=== PATIENT | female | born 1970 | race African-American/Black ===

== ENCOUNTER 2018-07-17 16:31 | Inpatient (IN) | payer MEDICARE, MEDICAID ==
[~2018-07-17] VITALS: Ht 172.7 cm; Wt 102.1 kg
[2018-07-17] MEDS ORDERED: ONDANSETRON HCL 4MG/2ML INJ IV STA (16:45)
[2018-07-17 18:19] LABS: BASOPHILS % 0.6 % (0.0-2.0); LYMPHOCYTES % 19.8 % (20.0-50.0); MEAN CORPUSCULAR HEMOGLOBIN 29.4 pg (28.0-32.0); MEAN CORPUSCULAR VOLUME 92.9 fL (81.0-99.0); MEAN PLATELET VOLUME 8.1 fl (7.4-10.4); MONOCYTES % 5.3 % (2.0-8.0); NEUTROPHILS % 72.3 % (40.0-76.0); PLATELET 148 x1000/uL (130-400); RED BLOOD CELL COUNT 1.92 mill/uL (4.2-5.4); RED CELL DISTRIBUTION WIDTH 17.4 % (11.6-14.6)
[2018-07-17 18:23] LABS: CHLORIDE 105 mEq/L (98-107); INR 1.2; PROTHROMBIN TIME 12.7 sec (9.6-11.0)
[2018-07-17 18:24] LABS: HEMATOCRIT. 17.9 % (36.0-48.0); HEMOGLOBIN. 5.7 g/dL (12.0-16.0)
[2018-07-17 18:27] LABS: ETHANOL BLOOD < 10 mg/dL
[2018-07-17 19:14] LABS: HEMATOCRIT 17.6 % (36.0-48.0); HEMOGLOBIN 5.6 g/dL (12.0-16.0)
[2018-07-18] VITALS (9 sets, daily range): BP systolic 107–155; BP diastolic 55–76
[2018-07-18] MEDS ORDERED: SODIUM BICARBONATE 8.4% 1 MEQ/ML 50ML SYR IV ONE (01:45)
[2018-07-18] MEDS ORDERED: CALCIUM CHLORIDE 1GM/10ML SYR IV ONE (01:45)
[2018-07-18] MEDS ORDERED: SODIUM POLYSTYRENE SULFONATE 15 G/60 ML BOT PO ONE (01:45)
[2018-07-18] MEDS ORDERED: FOLIC ACID/VITAMIN B COMP W-C TABLET PO SCH (09:00)
[2018-07-18 09:36] LABS: HEMATOCRIT 22.8 % (36.0-48.0); MEAN CORPUSCULAR HEMOGLOBIN 29.5 pg (28.0-32.0); MEAN CORPUSCULAR VOLUME 90.4 fL (81.0-99.0); PLATELET 120 x1000/uL (130-400); RED BLOOD CELL COUNT 2.52 mill/uL (4.2-5.4); RED CELL DISTRIBUTION WIDTH 15.9 % (11.6-14.6)
[2018-07-18 09:54] LABS: HEMOGLOBIN 7.5 g/dL (12.0-16.0)
[2018-07-18 11:57] LABS: HEPATITIS B SURFACE ANTIGEN NEGATIVE
[2018-07-18 12:26] LABS: HEPATITIS A AB IGM NEGATIVE (NEGATIVE)
[2018-07-18] MEDS ORDERED: PANTOPRAZOLE SODIUM 40 MG/VIAL IV SCH (14:00)
[2018-07-18 19:04] LABS: HEMATOCRIT 22.7 % (36.0-48.0); HEMOGLOBIN 7.4 g/dL (12.0-16.0)
== END 2018-07-18 21:15 | disposition short-term general hospital (02) | DRG 811 ==
LOC: ER 16:31 → 6WST 07-18 01:41 → EDBEDREQ 07-18 01:46 → EDBEDREQDT 07-18 01:46 → EDBEDREQTM 07-18 01:46 → ENRESERV 07-18 02:43 → 6WST 07-18 17:56
PROVIDERS: ADMIT Internal Medicine Geriatric Medicine; ATTEND Internal Medicine Geriatric Medicine
PROC: 30233N1 Transfusion of Nonautologous Red Blood Cells into Peripheral Vein, Percutaneous Approach (ICD-10-PCS; principal; 2018-07-17)
PROC: 5A1D70Z Performance of Urinary Filtration, Intermittent, Less than 6 Hours Per Day (ICD-10-PCS; 2018-07-18)
DX: D64.9 Anemia, unspecified (principal); E43 Unspecified severe protein-calorie malnutrition; N18.6 End stage renal disease; R18.8 Other ascites; I13.2 Hypertensive heart and chronic kidney disease with heart failure and with stage 5 chronic kidney disease, or end stage renal disease; G89.29 Other chronic pain; L98.499 Non-pressure chronic ulcer of skin of other sites with unspecified severity; I95.9 Hypotension, unspecified; E66.01 Morbid (severe) obesity due to excess calories; K74.60 Unspecified cirrhosis of liver; E87.5 Hyperkalemia; K21.9 Gastro-esophageal reflux disease without esophagitis; K59.00 Constipation, unspecified; K64.9 Unspecified hemorrhoids; Z99.2 Dependence on renal dialysis; Z68.34 Body mass index [BMI] 34.0-34.9, adult; Z88.6 Allergy status to analgesic agent; Z88.8 Allergy status to other drugs, medicaments and biological substances
CPT/HCPCS: 36415; 71045; 74176; 80048; 80320; 82140; 82270; 83540; 83550; 83605; 83880; 84484; 85014; 85018; 85027; 86705; 86709; 86803; 86850; 86900; 86920; 87340; 93005; 96374; 96375; 99285; C9113; J2405; J3490; J7040; P9016; G0480

== ENCOUNTER 2021-11-03 12:14 | Inpatient (IN) | payer MEDICARE, MEDICAID ==
[~2021-11-03] VITALS: Ht 167.6 cm; Wt 82.2 kg
[~2021-11-03 12:14] MED LIST: ATEN50TA PO; HYDR-4134 PO; LOSA50TA3 PO
[2021-11-03 13:10] LABS: BG BASE EXCESS 6.2 mmol/L (-2.0-2.0); BG CARBOXYHEMOGLOBIN 1.1 % (0.5-1.5); BG DEOXYHEMOGLOBIN 7.1 % (0.0-5.0); BG HCO3 ACT 31.7 mmol/L (22.0-26.0); BG METHEMOGLOBIN 0.3 % (0.0-1.5); BG OXYGEN SATURATION 92.8 % (92.0-98.5); BG OXYHEMOGLOBIN 91.5 % (94.0-97.0); BG PCO2 49.9 mmHg (35.0-45.0); BG PH 7.421 (7.350-7.450); BG PO2 69.5 mmHg (75.0-100.0); BG SAMPLE SITE RIGHT BRACHIAL; BG TOTAL HEMOGLOBIN 12.3 g/dL (12.0-18.0); BG VENT MODE ROOM AIR
[2021-11-03 13:59] LABS: BASOPHILS % 1.3 % (0.0-2.0); EOSINOPHILS % 8.2 % (0.0-5.0); HEMOGLOBIN. 10.4 g/dL (12.0-16.0); LYMPHOCYTES % 36.2 % (20.0-50.0); MEAN CORPUSCULAR HEMOGLOBIN 30.9 pg (28.0-32.0); MEAN CORPUSCULAR VOLUME 97.9 fL (81.0-99.0); MEAN PLATELET VOLUME 9.2 fl (7.4-10.4); MONOCYTES % 10.9 % (2.0-8.0); NEUTROPHILS % 43.4 % (40.0-76.0); PLATELET 114 x1000/uL (130-400); RED BLOOD CELL COUNT 3.37 mill/uL (4.2-5.4); RED CELL DISTRIBUTION WIDTH 16.8 % (11.6-14.6)
[2021-11-03 14:06] LABS: CHLORIDE 93 mEq/L (98-107)
[2021-11-03 14:09] LABS: INR 1.1; PROTHROMBIN TIME 12.1 sec (9.6-11.0)
[2021-11-03 14:16] LABS: ETHANOL BLOOD < 10 mg/dL
[2021-11-03] MEDS ORDERED: DEXTROSE 50% WATER 50ML SYRINGE IV ONE (14:30)
[2021-11-03] MEDS ORDERED: LABETALOL 5MG/ML SYR 20 MG/4 ML SYRINGE IV ONE (14:45)
[2021-11-03] MEDS ORDERED: IPRATROPIUM/ALBUTEROL 0.5-3(2.5)MG/3ML NEB HHN PRN (16:15)
[2021-11-03] MEDS ORDERED: DIPHENHYDRAMINE 50MG/ML VIAL IV PRN (16:15)
[2021-11-03] MEDS ORDERED: ACETAMINOPHEN 325MG TABLET PO PRN (16:15)
[2021-11-03] MEDS ORDERED: ONDANSETRON HCL 4MG/2ML INJ IV PRN (16:15)
[2021-11-03] MEDS: DEXT 5%/0.9% NACL 1,000 ML IV SCH (21:45)
[2021-11-03 23:17] VITALS: BP 160/90
[2021-11-04] MEDS ORDERED: DEXTROSE 50% WATER 50ML SYRINGE IV PRN (01:45)
[2021-11-04 04:00] VITALS: BP 140/79
[2021-11-04] MEDS ORDERED: AMLO5TAB88 MT (05:11)
[2021-11-04] MEDS: DEXT 5%/0.9% NACL 1,000 ML IV SCH ×2 (05:24→17:15)
[2021-11-04] MEDS: BLOOD SUGAR DIAGNOSTIC STRIP TEST SCH ×4 (07:40→20:06)
[2021-11-04 07:52] LABS: *AMPHETAMINES SCREEN URINE NEGATIVE (NEGATIVE); *BARBITURATES SCREEN URINE NEGATIVE (NEGATIVE); *BENZODIAZEPINES SCREEN URINE NEGATIVE (NEGATIVE); *COCAINE SCREEN URINE NEGATIVE (NEGATIVE); CANNABINOID URINE SCREEN PRESUMTIVE POSITIVE (NEGATIVE); METHADONE URINE SCREEN NEGATIVE (NEGATIVE); OPIATES URINE SCREEN NEGATIVE (NEGATIVE); PHENCYCLIDINE URINE SCREEN NEGATIVE (NEGATIVE)
[2021-11-04 07:56] LABS: CLARITY URINE TURBID (CLEAR); COLOR URINE BLOODY (YELLOW)
[2021-11-04 07:57] LABS: LEUKOCYTE ESTERASE URINE 1+ (NEGATIVE); UROBILINOGEN URINE 0.2 E.U./dL (0.2-1.0)
[2021-11-04 07:58] LABS: PROTEIN URINE 2+ (NEGATIVE)
[2021-11-04 07:59] LABS: OCCULT BLOOD URINE 3+ (NEGATIVE)
[2021-11-04 08:00] VITALS: BP 146/86
[2021-11-04 08:00] LABS: SPECIFIC GRAVITY URINE 1.005 (1.005-1.030)
[2021-11-04 08:01] LABS: KETONES URINE NEGATIVE (NEGATIVE)
[2021-11-04 08:02] LABS: NITRITE URINE NEGATIVE (NEGATIVE)
[2021-11-04 08:07] LABS: BASOPHILS % 0.6 % (0.0-2.0); EOSINOPHILS % 8.3 % (0.0-5.0); HEMATOCRIT. 26.6 % (36.0-48.0); HEMOGLOBIN. 8.8 g/dL (12.0-16.0); LYMPHOCYTES % 24.8 % (20.0-50.0); MEAN CORPUSCULAR HEMOGLOBIN 31.3 pg (28.0-32.0); MEAN CORPUSCULAR VOLUME 94.8 fL (81.0-99.0); MEAN PLATELET VOLUME 9.2 fl (7.4-10.4); MONOCYTES % 6.7 % (2.0-8.0); NEUTROPHILS % 59.6 % (40.0-76.0); PLATELET 123 x1000/uL (130-400); RED CELL DISTRIBUTION WIDTH 16.5 % (11.6-14.6)
[2021-11-04 08:12] LABS: CHLORIDE 95 mEq/L (98-107)
[2021-11-04] MEDS: CEFTRIAXONE 1,000 MG in DEXTROSE 5% WATER 50 ML IV SCH (11:30)
[2021-11-04 12:00] VITALS: BP 175/91
[2021-11-04 12:43] LABS: HEPATITIS B SURFACE ANTIGEN NEGATIVE
[2021-11-04] MEDS ORDERED: ATOR40TA70 PO (13:00)
[2021-11-04] MEDS ORDERED: GABA-532 PO (13:00)
[2021-11-04] MEDS ORDERED: CALC667T2 PO (13:01)
[2021-11-04] MEDS: LACTULOSE 20G/30ML UDC PO SCH ×2 (14:22→22:34)
[2021-11-04 16:00] VITALS: BP 144/80
[2021-11-04 20:00] VITALS: BP 162/89
[2021-11-04] MEDS ORDERED: EPOETIN ALFA-EPBX 10,000 UNIT/ML VIAL SUBCUT PRN (21:00)
[2021-11-05] VITALS: BP 155/89
[2021-11-05 04:00] VITALS: BP 156/85
[2021-11-05] MEDS: DEXT 5%/0.9% NACL 1,000 ML IV SCH ×2 (04:57→17:23)
[2021-11-05 06:19] LABS: BASOPHILS % 1.2 % (0.0-2.0); HEMATOCRIT. 27.3 % (36.0-48.0); HEMOGLOBIN. 8.9 g/dL (12.0-16.0); LYMPHOCYTES % 25.2 % (20.0-50.0); MEAN CORPUSCULAR HEMOGLOBIN 30.7 pg (28.0-32.0); MEAN CORPUSCULAR VOLUME 93.8 fL (81.0-99.0); MEAN PLATELET VOLUME 9.1 fl (7.4-10.4); MONOCYTES % 11.6 % (2.0-8.0); PLATELET 125 x1000/uL (130-400); RED BLOOD CELL COUNT 2.91 mill/uL (4.2-5.4); RED CELL DISTRIBUTION WIDTH 16.1 % (11.6-14.6)
[2021-11-05] MEDS: LACTULOSE 20G/30ML UDC PO SCH ×3 (06:36→21:29)
[2021-11-05] MEDS: BLOOD SUGAR DIAGNOSTIC STRIP TEST SCH ×4 (07:40→21:29)
[2021-11-05 08:00] VITALS: BP 158/85
[2021-11-05] MEDS: CEFTRIAXONE 1,000 MG in DEXTROSE 5% WATER 50 ML IV SCH (08:15)
[2021-11-05] MEDS ORDERED: LACT10SO3 MT (11:14)
[2021-11-05 12:00] VITALS: BP 148/92
[2021-11-05 16:45] VITALS: BP 179/114
[2021-11-05] MEDS: VANCOMYCIN 1,750 MG in DEXT 5% WATER 500 ML IV NR ×2 (17:20→17:44)
[2021-11-05] MEDS: ATENOLOL 50 MG TABLET PO SCH (17:51)
[2021-11-05] MEDS: AMLODIPINE 5MG TABLET PO SCH (17:52)
[2021-11-05 20:00] VITALS: BP 160/88
[2021-11-05] MEDS: HYDRALAZINE HCL 25MG TABLET PO SCH (21:29)
[2021-11-06] VITALS: BP 135/75
[2021-11-06 04:00] VITALS: BP 158/86
[2021-11-06] MEDS: LACTULOSE 20G/30ML UDC PO SCH ×3 (05:40→21:25)
[2021-11-06] MEDS: BLOOD SUGAR DIAGNOSTIC STRIP TEST SCH ×4 (05:40→20:42)
[2021-11-06 08:00] VITALS: BP 104/51
[2021-11-06] MEDS: CEFTRIAXONE 1,000 MG in DEXTROSE 5% WATER 50 ML IV SCH (08:19)
[2021-11-06] MEDS: HYDRALAZINE HCL 25MG TABLET PO SCH ×2 (08:19→21:26)
[2021-11-06] MEDS: DEXT 5%/0.9% NACL 1,000 ML IV SCH ×2 (08:19→18:02)
[2021-11-06] MEDS: AMLODIPINE 5MG TABLET PO SCH (08:19)
[2021-11-06] MEDS: ATENOLOL 50 MG TABLET PO SCH (08:20)
[2021-11-06 10:34] LABS: BASOPHILS % 0.4 % (0.0-2.0); EOSINOPHILS % 4.2 % (0.0-5.0); HEMATOCRIT. 29.6 % (36.0-48.0); HEMOGLOBIN. 9.5 g/dL (12.0-16.0); LYMPHOCYTES % 8.9 % (20.0-50.0); MEAN CORPUSCULAR HEMOGLOBIN 30.6 pg (28.0-32.0); MEAN PLATELET VOLUME 8.9 fl (7.4-10.4); MONOCYTES % 8.3 % (2.0-8.0); NEUTROPHILS % 78.2 % (40.0-76.0); PLATELET 128 x1000/uL (130-400); RED CELL DISTRIBUTION WIDTH 15.9 % (11.6-14.6)
[2021-11-06 10:38] LABS: MEAN CORPUSCULAR VOLUME 95.4 fL (81.0-99.0)
[2021-11-06] MEDS ORDERED: IPRATROPIUM/ALBUTEROL 0.5-3(2.5)MG/3ML NEB HHN PRN (11:45)
[2021-11-06] MEDS ORDERED: ONDANSETRON HCL 4MG/2ML INJ IV PRN (11:45)
[2021-11-06 11:54] VITALS: BP 116/61
[2021-11-06] MEDS: ACETAMINOPHEN 325MG TABLET PO PRN ×2 (11:54→18:04)
[2021-11-06 16:00] VITALS: BP 131/79
[2021-11-06 20:00] VITALS: BP 132/67
[2021-11-07] VITALS: BP 129/68
[2021-11-07 04:00] VITALS: BP 133/66
[2021-11-07] MEDS: BLOOD SUGAR DIAGNOSTIC STRIP TEST SCH (05:44)
[2021-11-07] MEDS: LACTULOSE 20G/30ML UDC PO SCH (05:44)
[2021-11-07 08:00] VITALS: BP 167/71
[2021-11-07] MEDS: CEFTRIAXONE 1,000 MG in DEXTROSE 5% WATER 50 ML IV SCH (09:29)
[2021-11-07] MEDS: HYDRALAZINE HCL 25MG TABLET PO SCH (09:33)
[2021-11-07] MEDS: ATENOLOL 50 MG TABLET PO SCH (09:34)
[2021-11-07] MEDS: AMLODIPINE 5MG TABLET PO SCH (09:34)
[2021-11-07 10:30] VITALS: BP 167/71
[2021-11-07 12:00] VITALS: BP 139/74
== END 2021-11-07 12:50 | disposition home health service (06) | DRG 70 ==
LOC: ER 12:14 → 7WST 15:36 → EDBEDREQTM 15:49 → EDBEDREQ 15:49 → EDBEDREQSVC 15:49 → ENRESERV 20:21
PROVIDERS: ADMIT Internal Medicine; ATTEND Internal Medicine
PROC: 5A1D70Z Performance of Urinary Filtration, Intermittent, Less than 6 Hours Per Day (ICD-10-PCS; 2021-11-04)
PROC: 4A00X4Z Measurement of Central Nervous Electrical Activity, External Approach (ICD-10-PCS; principal; 2021-11-06)
DX: G93.41 Metabolic encephalopathy (principal); E43 Unspecified severe protein-calorie malnutrition; N18.6 End stage renal disease; N39.0 Urinary tract infection, site not specified; I13.2 Hypertensive heart and chronic kidney disease with heart failure and with stage 5 chronic kidney disease, or end stage renal disease; D61.818 Other pancytopenia; R47.01 Aphasia; E72.20 Disorder of urea cycle metabolism, unspecified; I42.0 Dilated cardiomyopathy; I50.20 Unspecified systolic (congestive) heart failure; G47.30 Sleep apnea, unspecified; E66.01 Morbid (severe) obesity due to excess calories; E16.2 Hypoglycemia, unspecified; I16.0 Hypertensive urgency; I27.21 Secondary pulmonary arterial hypertension; R73.9 Hyperglycemia, unspecified; D63.1 Anemia in chronic kidney disease; Z68.29 Body mass index [BMI] 29.0-29.9, adult; Z99.2 Dependence on renal dialysis; Z91.15 Patient's noncompliance with renal dialysis; Z88.8 Allergy status to other drugs, medicaments and biological substances; I07.1 Rheumatic tricuspid insufficiency
CPT/HCPCS: 36415; 36600; 70551; 71045; 76700; 80048; 80053; 80202; 80305; 80320; 81003; 82140; 82375; 82533; 82805; 82962; 83605; 84145; 84484; 85025; 86705; 86709; 86803; 87340; 92610; 93005; 93306; 95816; 97162; 97166; 99291; C1893; J0696; J0885; J2405; J3370; J3490; J7060; A4315; G0480

== ENCOUNTER 2023-08-24 22:48 | Emergency (ER) | payer OTHER, MEDICAID ==
[~2023-08-24] VITALS: Ht 167.6 cm; Wt 82.0 kg
[~2023-08-24 22:48] MED LIST changes: +AMLO5TAB88 MT; +ATOR40TA70 PO; +CALC667T2 PO; -HYDR-4134 PO; +HYDR25TA78 PO; +LACT10SO3 MT; -LOSA50TA3 PO
[2023-08-24 22:55] VITALS: O2SAT 96
[2023-08-24 23:28] LABS: HEMATOCRIT. 29.3 % (36.0-48.0); LYMPHOCYTES % 33.8 % (20.0-50.0); MEAN CORPUSCULAR HEMOGLOBIN 32.5 pg (28.0-32.0); MEAN CORPUSCULAR HGB CONC 34.1 g/dL (31.0-37.0); MEAN CORPUSCULAR VOLUME 95.6 fL (81.0-99.0); MEAN PLATELET VOLUME 9.2 fl (7.4-10.4); MONOCYTES % 8.9 % (2.0-8.0); NEUTROPHILS % 52.3 % (40.0-76.0); PLATELET 164 x1000/uL (130-400); RED BLOOD CELL COUNT 3.06 mill/uL (4.2-5.4); RED CELL DISTRIBUTION WIDTH 13.2 % (11.6-14.6)
[2023-08-24 23:31] LABS: CHLORIDE 97 mEq/L (98-107); SODIUM 139 mEq/L (136-145)
[2023-08-24 23:32] LABS: CARBON DIOXIDE 35 mEq/L (21-32)
[2023-08-24 23:33] LABS: CALCIUM 7.6 mg/dL (8.7-10.4)
[2023-08-24 23:37] LABS: GLUCOSE 84 mg/dL (70-105)
[2023-08-24 23:38] LABS: UREA NITROGEN BLOOD 46 mg/dL (9-23)
[2023-08-24 23:39] LABS: TROPONIN I HIGH SENSITIVITY 26 ng/L (3.0-34)
[2023-08-24 23:43] LABS: ETHANOL BLOOD < 10 mg/dL (<10)
[2023-08-24 23:44] LABS: CREATININE 6.7 mg/dL (0.6-1.0)
[2023-08-24] MEDS: MORPHINE SULFATE 4 MG/ML INJ (FOR IV/IM USE) IV ONE (23:48)
[2023-08-25] MEDS: ACETAMINOPHEN 1000MG/100ML 100 ML IV ONE ×2 (01:06→04:32)
[2023-08-25] MEDS: MORPHINE SULFATE 2 MG/ML CPJ (NOT FOR IM USE) IV ONE (04:59)
[2023-08-25] MEDS ORDERED: IPRATROPIUM/ALBUTEROL 0.5-3(2.5)MG/3ML NEB HHN PRN (06:00)
[2023-08-25] MEDS ORDERED: ACETAMINOPHEN 325MG TABLET PO PRN (06:00)
[2023-08-25] MEDS ORDERED: MAGNESIUM/ALUMINUM HYDROXIDE/SIMETHICONE 30ML UDC PO PRN (06:00)
[2023-08-25] MEDS ORDERED: ONDANSETRON HCL 4MG/2ML INJ IV PRN (06:00)
[2023-08-25] MEDS ORDERED: GUAIFENESIN 200MG/10ML SUGAR FREE UDC PO PRN (06:00)
[2023-08-25] MEDS ORDERED: DOCUSATE SODIUM 100MG CAPSULE PO PRN (06:00)
[2023-08-25] MEDS ORDERED: HYDROCODONE/ACETAMINOPHEN 5/325MG TABLET PO PRN (06:15)
[2023-08-25 06:16] LABS: CREATINE KINASE 61 IU/L (34-145)
[2023-08-25] MEDS ORDERED: HYDRALAZINE 20MG/ML VIAL IV PRN (06:30)
[2023-08-25 06:38] LABS: IRON 91 ug/dL (50-170)
[2023-08-25 06:41] LABS: PHOSPHORUS 5.4 mg/dL (2.5-4.9); TOTAL IRON BINDING CAPACITY 184 ug/dl (250-425)
[2023-08-25 06:44] LABS: FERRITIN 1452 ng/mL (10-291); FOLIC ACID (FOLATE) SERUM 5.99 ng/mL (>5.38); VITAMIN B12 SERUM 456 pg/mL (211-911)
[2023-08-25 08:52] VITALS: BP 106/75; PULSE 77; RESP 14; TEMP 98
[2023-08-25] MEDS: MORPHINE SULFATE 2 MG/ML CPJ (NOT FOR IM USE) IV PRN (08:52)
== END 2023-08-25 09:02 | disposition short-term general hospital (02) ==
LOC: ER 22:48
DX: S70.12XA Contusion of left thigh, initial encounter (principal); N18.6 End stage renal disease; Z99.2 Dependence on renal dialysis; W18.39XA Other fall on same level, initial encounter; Y93.89 Activity, other specified; Y92.89 Other specified places as the place of occurrence of the external cause; Y99.8 Other external cause status; J45.909 Unspecified asthma, uncomplicated
CPT/HCPCS: 80048; 80320; 82550; 83880; 85025; 84484; 36415; 73502; 73552; 71045; 73560; 93005; 96375; 99285; 82607; 82728; 82746; 83540; 83550; 83735; 84100; 93970; 96365; 96376; J2270 ×2; G0480; J0131